=== PATIENT | female | born 2000 | race Hispanic/Latino ===

== ENCOUNTER 2018-05-14 15:02 | Emergency (ER) | payer SELFPAY | END 2018-05-14 16:25 | disposition home or self-care (01) | LOC: ERS 15:02 | DX: J06.9 Acute upper respiratory infection, unspecified (principal) | CPT/HCPCS: 87081; 87430; 87804; 99283 ==

== ENCOUNTER 2018-06-03 15:15 | Emergency (ER) | payer SELFPAY ==
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
== END 2018-06-03 16:07 | disposition home or self-care (01) ==
LOC: ERS 15:15
DX: S06.9X9A Unspecified intracranial injury with loss of consciousness of unspecified duration, initial encounter (principal); S00.83XA Contusion of other part of head, initial encounter; V43.52XA Car driver injured in collision with other type car in traffic accident, initial encounter
CPT/HCPCS: 70450; 70486; 72125; G0390

== ENCOUNTER 2018-08-30 12:12 | Emergency (ER) | payer SELFPAY ==
[2018-08-30 13:31] LABS: Bilirubin Small (Negative); Blood, Urine Negative (Negative); Clarity CLEAR (Clear); Glucose, Urine (Dipstick) Negative (Negative); Leukocyte Trace (Negative); Nitrite Negative (Negative); Protein, Urine (Dipstick) Negative (Neg-Trace); Specific Gravity, Urine 1.018 (1.002-1.036); Urobilinogen 0.2 mg/dL (0.2-1.0)
[2018-08-30 13:33] LABS: Pregu Control Background? CLEAR/WHITE (CLR/WHITE); Pregu Control Bar Appear? YES (CONTROL BAR); Specific Gravity 1.018 (1.002-1.036)
[2018-08-30 13:34] LABS: Bacteria/HPF None Seen HPF (None Seen); Squamous Epithelial 0-3 HPF (0-3); WBC/HPF 0-3 HPF (0-3)
[2018-08-30 13:35] LABS: Pathc Cast-AUWi Flag 3.77 (0-2.49)
[2018-08-30 13:36] LABS: Hyaline Casts/LPF 0-3 HYALINE CAST LPF (0-3 Hyaline); Manual Microscopic Reviewed? No Path Casts Seen
[2018-08-30 14:17] LABS: Pregnancy Test - Urine (BHCG) POSITIVE (Negative)
[2018-08-30 15:01] LABS: #Lymphocytes 1.5 thou/uL (1.20-3.40); #Monocytes 0.3 thou/uL (0.11-0.59); #Neutrophils 3.3 thou/uL (1.40-6.50); %Basophils 0.6 % (0.0-1.0); %Eosinophils 0.5 % (0.0-10.0); %Lymphocytes 28.6 % (28.0-48.0); %Monocytes 6.3 % (0.0-4.0); Mean Corpuscular HGB CONC 33.9 g/dL (32.0-36.0); Mean Corpuscular Hemoglobin 29.1 pg (25.0-35.0); Mean Corpuscular Volume 85.9 fL (78.0-98.0); Mean Platelet Volume 6.6 fL (7.4-10.4); Platelet Count 294 thou/uL (130-400); Red Blood Cell (RBC) Count 4.13 mill/uL (4.00-5.20); White Blood Cell (WBC) Count 5.2 thou/uL (4.8-10.8)
[2018-08-30 15:23] LABS: ALT (SGPT) 7 U/L (8-55); AST (SGOT) 14 U/L (5-34); Albumin 4.1 g/dL (3.5-5.0); Alkaline Phosphatase 66 U/L (40-150); Anion Gap 10 mmol/L (10-20); BUN (Urea Nitrogen) 6 mg/dL (7.0-18.7); Bilirubin, Total 0.3 mg/dL (0.2-1.2); Calc. Creatinine Clearance 0 mL/min (70-130); Carbon Dioxide 24 mmol/L (22-29); Chloride 107 mmol/L (98-107); Estimated GFR-MDRD Greater than 90; Globulin 2.9 g/dL (2.4-3.5); Glucose 93 mg/dL (70-105); Potassium 3.4 mmol/L (3.5-5.1); Sodium 138 mmol/L (136-145)
--- NOTE | 2018-08-30 15:58 | ULT ---
OBSTETRIC SONOGRAM TRANSABDOMINAL AND TRANSVAGINAL IMAGES WITH DUPLEX EVALUATION: 08/30/18 HISTORY: Early . Pelvic pain. FINDINGS: The urinary bladder is unremarkable. Uterus is retroverted with a homogeneous echotexture. 7.3 cm. Ge stational sac contains a small yolk sac and pole. No heart motion visible. Sizes correlate with 5 weeks, 4 days gestational age. Estimated date of delivery 04/28/19. No free fluid in the pelvis. Right ovary is 3.2 cm and left is 3.5 cm. Each has a normal appearance w ith good color and spectral doppler flow. IMPRESSION: Early intrauterine gestation without heart tones visualized. Size correlates with 5 weeks, 4 da ys gestational age. Retroverted uterus. No significant abnormalities otherwise demonstrated. POS: [facility]
[2018-09-02 00:55] LABS: Chlamydia by PCR Not Detected (NotDetected); GC by PCR Not Detected (NotDetected)
== END 2018-08-30 16:20 | disposition home or self-care (01) ==
LOC: ERS 12:12
DX: N76.0 Acute vaginitis (principal); Z33.1 Pregnant state, incidental
CPT/HCPCS: 36415; 76856; 80053; 81003; 81015; 81025; 84702; 85025; 87480; 87491; 87510; 87591; 87660

== ENCOUNTER 2018-09-03 09:09 | Emergency (ER) | payer SELFPAY ==
[2018-09-03 10:33] LABS: Anion Gap 12 mmol/L (10-20); BUN (Urea Nitrogen) 7 mg/dL (7.0-18.7); Calc. Creatinine Clearance 0 mL/min (70-130); Calcium 8.9 mg/dL (7.8-10.44); Carbon Dioxide 22 mmol/L (22-29); Chloride 106 mmol/L (98-107); Estimated GFR-MDRD Greater than 90; Glucose 90 mg/dL (70-105); Potassium 3.6 mmol/L (3.5-5.1); Sodium 136 mmol/L (136-145)
--- NOTE | 2018-09-03 10:52 | ULT ---
PELVIC ULTRASOUND: HISTORY: Pelvic pain. TECHNIQUE: Real-time imaging of the pelvis was performed both transabdominally as well as with an endovaginal pr obe. FINDINGS: This shows an intrauterine gestational sac and yolk sac and a possible early pole. The crown-t o-rump length measurements are 3 mm, corresponding to 5 weeks 6 days. Gestational sac measurements a re 1.4 cm, corresponding to 6 weeks 2 days. There is some heterogeneity to the endometrium on either side of this gestational sac. This could indicate some foci of subchorionic bleed. No heart tones are detected but this could be just related to the small size of the pole. The right and left adnexa are fairly well visualized. There is an area of altered echogenicity withi n the right ovary, measuring approximately 2 cm. This could represent a hemorrhagic cyst. On Doppler evaluation with spectral analysis, there is normal flow shown to the adnexa. IMPRESSION: Intrauterine gestational sac and what appears to be a small pole, although no heart tones are detected at this time. This may be related to the early stage of . The [id number] length measurements would correspond to 5 weeks 6 days, and gestational sac measurements 6 weeks 2 da ys. There is some complex cystic change on either side of this gestational sac, which may represent subchorionic bleed. Follow-up ultrasound would be recommended for assessment. POS: [facility]
[2018-09-03 11:02] LABS: #Eosinphils 0.1 thou/uL (0.0-0.7); #Lymphocytes 2.1 thou/uL (1.20-3.40); #Monocytes 0.3 thou/uL (0.11-0.59); #Neutrophils 4.4 thou/uL (1.40-6.50); %Basophils 0.4 % (0.0-1.0); %Eosinophils 1.3 % (0.0-10.0); %Lymphocytes 30.1 % (28.0-48.0); %Monocytes 4.3 % (0.0-4.0); %Neutrophils 63.9 % (31.0-61.0); Hemoglobin 11.8 g/dL (12.0-16.0); Mean Corpuscular HGB CONC 32.8 g/dL (32.0-36.0); Mean Corpuscular Volume 85.5 fL (78.0-98.0); Mean Platelet Volume 6.5 fL (7.4-10.4); Platelet Count 368 thou/uL (130-400); RBC Distribution Width 13.4 % (11.5-14.5); Red Blood Cell (RBC) Count 4.23 mill/uL (4.00-5.20); White Blood Cell (WBC) Count 6.9 thou/uL (4.8-10.8)
== END 2018-09-03 11:20 | disposition home or self-care (01) ==
LOC: ERS 09:09
DX: O20.0 Threatened abortion (principal); Z3A.01 Less than 8 weeks gestation of pregnancy
CPT/HCPCS: 36415; 76856; 80048; 84702; 85025